=== PATIENT | female | born 1985 | race Asian ===

== ENCOUNTER 2020-06-22 12:03 | Outpatient (CLI) | payer BC ==
[~2020-06-22 12:03] MED LIST: DOCU-186 PO; OMEP40CA42 PO
== END 2020-06-22 23:59 | disposition home or self-care (01) ==
LOC: EDSEX → STAR 12:03
PROVIDERS: ATTEND Anesthesiology
DX: U07.1 COVID-19 (principal); Z01.818 Encounter for other preprocedural examination
CPT/HCPCS: 36415; 87635